=== PATIENT | female | born 1950 | race Two or more races ===

== ENCOUNTER 2025-03-04 09:00 | Day surgery (SDC) | payer OTHER ==
[2025-02-24 13:33] VITALS: BP 170/90
[~2025-03-04] VITALS: Ht 170.2 cm; Wt 91.6 kg
[~2025-03-04 09:00] MED LIST: FARXIGA10 MG PO; HORIZANT300 MG PO; HYDRALAZINE HC100 MG PO; OZEMPIC0.25 MG/02; ROSUVASTATIN CA20 MG PO; TOPROL XL50 M1 PO; ZETIA10 MG PO
[2025-03-04] MEDS ORDERED: CEFAZOLIN SODIUM 1,000 MG VIAL ONE (11:01)
[2025-03-04] MEDS ORDERED: TRIAMCINOLONE ACETONIDE 40 MG/ML VIAL ONE (11:04)
[2025-03-04] MEDS ORDERED: hydrALAZINE HCL 20 MG VIAL ONE (12:27)
[2025-03-04] MEDS ORDERED: hydrALAZINE HCL 20 MG VIAL IV STA (12:30)
[2025-03-04] MEDS ORDERED: hydrALAZINE HCL 20 MG VIAL IV PRN (12:30)
== END 2025-03-04 14:00 | disposition home or self-care (01) ==
LOC: CIR.AMB 09:00
PROVIDERS: ATTEND Surgery Surgery of the Hand
DX: M65.842 Other synovitis and tenosynovitis, left hand (principal)